=== PATIENT | female | born 1955 | race Caucasian/White ===

== ENCOUNTER 2018-06-08 12:16 | Emergency (ER) | payer MEDICARE ==
[~2018-06-08] VITALS: Ht 170.2 cm; Wt 104.5 kg
[2018-06-08 12:49] VITALS: Ht 170.2 cm; Wt 104.5 kg
[2018-06-08] MEDS ORDERED: ZESTORETIC 10/11 TAB PO (12:53)
[2018-06-08] MEDS ORDERED: ALEVE220 MG PO (12:53)
[2018-06-08] MEDS ORDERED: ASPIRIN EC81 M1 PO (12:53)
[2018-06-08 13:12] LABS: BASOPHILS 0.1 % (0-2); EOSINOPHILS 0.9 % (0-7); HEMATOCRIT 39.3 % (36.0-48.0); HEMOGLOBIN 13.6 g/dL (12-16); IMMATURE GRANULOCYTES 0.1 % (0-5); MCH 31.9 pg (26.0-34.0); MCHC 34.6 g/dL (31.0-37.0); MCV 92.3 fL (80.0-100.0); MEAN PLATELET VOLUME 10.2 fL (7.4-10.4); MONOCYTES 7.2 % (2-11); NEUTROPHILS 79.7 % (40-80); PLATELET COUNT 266 10x3/uL (130-400); RBC 4.26 10x6/uL (4.00-5.40); RDW 12.7 % (11.5-14.5); WBC 8.9 10x3/uL (4.8-10.8)
[2018-06-08 13:38] LABS: ANION GAP 12.2 mmol/L (8-16); BILIRUBIN - TOTAL 0.55 mg/dL (0.2-1.3); CARBON DIOXIDE 27.9 mmol/L (21.0-32.0); CREATININE - SERUM 1.1 mg/dL (0.6-1.3); POTASSIUM - SERUM 4.1 mmol/L (3.5-5.1); PROTEIN - SERUM 7.4 g/dL (6.4-8.2)
[2018-06-08 15:07] LABS: APPEARANCE CLEAR (CLEAR); BACTERIA FEW /hpf (NONE SEEN); BILIRUBIN NEGATIVE (NEGATIVE); COLOR YELLOW (YELLOW); EPITHELIAL CELLS 0-5 /hpf (0-5); GLUCOSE NEGATIVE (NEGATIVE); KETONE NEGATIVE (NEGATIVE); NITRITE NEGATIVE (NEGATIVE); PROTEIN NEGATIVE (NEGATIVE); RED CELLS - URINE 0-5 /hpf (0-5); SPECIFIC GRAVITY 1.015 (1.005-1.020); UROBILINOGEN NORMAL (NORMAL); WHITE CELLS - URINE 0-5 /hpf (0-5)
[2018-06-08] MEDS ORDERED: ULTRAM50 MG PO (15:45)
[2018-06-08 16:16] VITALS: BP 137/78
== END 2018-06-08 16:16 | disposition home or self-care (01) ==
LOC: D.ER 12:16
PROVIDERS: Emergency Medicine
DX: M54.5 Low back pain (principal); R10.31 Right lower quadrant pain; I10 Essential (primary) hypertension

== ENCOUNTER → 2020-01-23 17:43 | Outpatient (CLI) | payer MEDICARE, BC ==
[2018-06-08 12:49] VITALS: BMI 36.1
[~2020-01-23 17:43] MED LIST: ALEVE220 MG PO; ASPIRIN EC81 M1 PO; ULTRAM50 MG PO; ZESTORETIC 10/11 TAB PO
== END | disposition home or self-care (01) ==
LOC: D.MAMMO 12:00
PROVIDERS: ATTEND Family Medicine
DX: Z12.31 Encounter for screening mammogram for malignant neoplasm of breast (principal)